=== PATIENT | female | born 1945 | race Caucasian/White ===

== ENCOUNTER 2017-07-10 09:53 | Emergency (ER) | payer MEDICARE, BC ==
[2017-07-10] MEDS ORDERED: Sodium Chloride 0.9% 10 ML Syringe FLUSH PRN (09:56)
--- NOTE | 2017-07-10 10:02 | EDM.PDOC ---
ED HPI GENERAL MEDICAL PROBLEM - General Chief Complaint: Respiratory Problem Stated Complaint: sob Time Seen by Provider: 07/10/17 09:57 Source of Information: Reports: Patient History Limitations: Reports: No Limitations - History of Present Illness INITIAL COMMENTS - FREE TEXT/NARRATIVE: Patient is a 72-year-old who is seen in the ER with chief complaint shortness of breath not feeling well for about a week for the past 2 days has had progressive shortness of breath was brought in by ambulance for evaluation patient was placed on oxygen which did not help and given a respiratory treatment with no help. Onset: Gradual Duration: Day(s):, Getting Worse Location: Reports: Chest Severity: Moderate Improves with: Reports: None Worsens with: Reports: None Context: Reports: Other (Illness) Associated Symptoms: Reports: Shortness of Breath, Weakness - Related Data Allergies Allergy/AdvReac Type Severity Reaction Status Date / Time bacitracin Allergy Other Verified 07/10/17 10:23 Penicillins Allergy Other Verified 07/10/17 10:23 Home Meds: Home Meds Albuterol [Ventolin HFA] 2 puff INH QID PRN 07/10/17 [History] Albuterol/Ipratropium [DuoNeb 3.0-0.5 MG/3 ML] 3 ml NEB Q6HRRT 30 Days #120 neb 07/10/17 [Rx] Aspirin 81 mg PO DAILY 07/10/17 [History] Hydrochlorothiazide [Hydrochlorothiazide] 25 mg PO DAILY 07/10/17 [History] Levofloxacin [Levaquin] 500 mg PO Q24H #10 tablet 07/10/17 [Rx] Magnesium 200 mg PO DAILY 07/10/17 [History] Oxybutynin [Oxybutynin ER] 10 mg PO DAILY 07/10/17 [History] Pantoprazole [ProTONIX] 40 mg PO QPM 07/10/17 [History] Potassium Chloride 20 meq PO DAILY 07/10/17 [History] atorvaSTATin [Lipitor] 40 mg PO BEDTIME 07/10/17 [History] predniSONE 20 mg PO BID 10 Days #20 tablet 07/10/17 [Rx] ED ROS GENERAL - Review of Systems Review Of Systems: See Below Constitutional: Reports: Weakness, Other (Shortness of breath) HEENT: Reports: No Symptoms Respiratory: Reports: Shortness of Breath Cardiovascular: Reports: No Symptoms Endocrine: Reports: No Symptoms GI/Abdominal: Reports: No Symptoms : Reports: No Symptoms Musculoskeletal: Reports: Arm Pain (Right arm pain when she drives) Skin: Reports: No Symptoms Neurological: Reports: No Symptoms Psychiatric: Reports: No Symptoms Hematologic/Lymphatic: Reports: No Symptoms ED EXAM, GENERAL - Physical Exam Exam: See Below General Appearance: Alert, WD/WN, Mild Distress Ears: Normal External Exam, Normal Canal, Hearing Grossly Normal, Normal TMs Ear Exam: Bilateral Ear: Auricle Normal, Canal Normal, TM normal Nose: Normal Inspection, Normal Mucosa, No Blood Throat/Mouth: Normal Inspection, Normal Lips, Normal Teeth, Normal Gums, Normal Oropharynx, Normal Voice, No Airway Compromise Head: Atraumatic, Normocephalic Neck: Normal Inspection, Supple, Non-Tender, Full Range of Motion Respiratory/Chest: Lungs Clear, Decreased Breath Sounds, Prolonged Expiration Cardiovascular: Normal Peripheral Pulses, Regular Rate, Rhythm, No Edema, No Gallop, No JVD, No Murmur, No Rub GI/Abdominal: Normal Bowel Sounds, Soft, Non-Tender, No Organomegaly, No Distention, No Abnormal Bruit, No Mass (Female) Exam: Deferred Rectal (Female) Exam: Deferred Back Exam: Normal Inspection, Decreased Range of Motion Extremities: Normal Inspection, Normal Range of Motion, Non-Tender, Normal Capillary Refill, No Pedal Edema Neurological: Alert, Oriented, CN II-XII Intact, Normal Cognition, Normal Gait, Normal Reflexes, No Motor/Sensory Deficits Psychiatric: Normal Affect, Normal Mood Skin Exam: Warm, Dry, Intact, Normal Color, No Rash Course - Vital Signs Last Recorded V/S: Last Vital Signs Temp 97.8 F 07/10/17 11:15 Pulse 96 07/10/17 11:48 Resp 16 07/10/17 11:48 BP 140/53 L 07/10/17 11:48 Pulse Ox 98 07/10/17 11:48 - Orders/Labs/Meds Labs: Laboratory Tests 07/10/17 07/10/17 07/10/17 Range/Units 09:57 10:15 10:15 WBC 7.0 (4.0-10.2) K/uL RBC 4.26 (3.77-5.09) M/uL Hgb 13.0 (11.7-15.5) g/dL Hct 39.5 (34.0-46.0) % MCV 92.7 (84.0-98.0) fL MCH 30.5 (28.2-33.3) pg MCHC 32.9 (31.7-36.0) g/dL RDW 13.7 (11.2-14.1) % Plt Count 258 (150-350) K/uL Neut % (Auto) 71.2 (45.0-80.0) % Lymph % (Auto) 21.6 (10.0-50.0) % [place] % (Auto) 6.2 (2.0-14.0) % Eos % (Auto) 0.7 (0.0-5.0) % Baso % (Auto) 0.3 (0.0-2.0) % Neut # (Auto) 4.95 (1.40-7.00) K/uL Lymph # (Auto) 1.50 (0.50-3.50) K/uL [place] # (Auto) 0.43 (0.00-1.00) K/uL Eos # (Auto) 0.05 (0.00-0.50) K/uL Baso # (Auto) 0.02 (0.00-0.20) K/uL D-Dimer, Quantitative (0-400) ng/mL Sodium 144 (136-145) mmol/L Potassium 2.5 L* (3.5-5.1) mmol/L Chloride 102 (98-107) mmol/L Carbon Dioxide 31.1 (21.0-32.0) mmol/L BUN 10 (7-18) mg/dL Creatinine 0.78 (0.51-1.17) mg/dL Est Cr Clr Drug Dosing 50.05 mL/min Estimated GFR (MDRD) > 60 mL/min Glucose 152 H (74-106) mg/dL Hemoglobin A1c 6.0 H (4.3-5.7) % Calcium 10.7 H (8.5-10.1) mg/dL 07/10/17 Range/Units 10:15 WBC (4.0-10.2) K/uL RBC (3.77-5.09) M/uL Hgb (11.7-15.5) g/dL Hct (34.0-46.0) % MCV (84.0-98.0) fL MCH (28.2-33.3) pg MCHC (31.7-36.0) g/dL RDW (11.2-14.1) % Plt Count (150-350) K/uL Neut % (Auto) (45.0-80.0) % Lymph % (Auto) (10.0-50.0) % [place] % (Auto) (2.0-14.0) % Eos % (Auto) (0.0-5.0) % Baso % (Auto) (0.0-2.0) % Neut # (Auto) (1.40-7.00) K/uL Lymph # (Auto) (0.50-3.50) K/uL [place] # (Auto) (0.00-1.00) K/uL Eos # (Auto) (0.00-0.50) K/uL Baso # (Auto) (0.00-0.20) K/uL D-Dimer, Quantitative 126 (0-400) ng/mL Sodium (136-145) mmol/L Potassium (3.5-5.1) mmol/L Chloride (98-107) mmol/L Carbon Dioxide (21.0-32.0) mmol/L BUN (7-18) mg/dL Creatinine (0.51-1.17) mg/dL Est Cr Clr Drug Dosing mL/min Estimated GFR (MDRD) mL/min Glucose (74-106) mg/dL Hemoglobin A1c (4.3-5.7) % Calcium (8.5-10.1) mg/dL Meds: Medications Discontinued Medications Generic Name Dose Route Start Last Admin Trade Name Freq PRN Reason Stop Dose Admin Albuterol/Ipratropium 3 ml 07/10/17 11:20 07/10/17 11:24 Duoneb 3.0-0.5 Mg/3 Ml NEB 07/10/17 11:21 3 ml ONETIME ONE Administration Budesonide 0.5 mg 07/10/17 11:21 07/10/17 11:35 Pulmicort NEB 07/10/17 11:22 0.5 mg ONETIME ONE Administration Iopamidol 100 ml 07/10/17 10:24 Isovue-370 (76%) IVPUSH 07/10/17 10:25 ONETIME ONE Methylprednisolone Sodium Succinate 125 mg 07/10/17 11:22 07/10/17 11:35 Solu-Medrol IVPUSH 07/10/17 11:23 125 mg ONETIME ONE Administration Potassium Chloride 40 meq 07/10/17 10:43 07/10/17 11:15 Klor-Con M20 PO 07/10/17 10:44 40 meq ONETIME ONE Administration Sodium Chloride 10 ml 07/10/17 09:56 Saline Flush FLUSH ASDIRECTED PRN Keep Vein Open Departure - Departure Time of Disposition: 12:20 Disposition: Home, Self-Care 01 Condition: Fair Clinical Impression: Acute bronchiolitis Qualifiers: Bronchiolitis organism: unspecified organism Qualified Code(s): J21.9 - Acute bronchiolitis, unspecified - Discharge Information Prescriptions: Albuterol/Ipratropium [DuoNeb 3.0-0.5 MG/3 ML] 3 ml NEB Q6HRRT 30 Days #120 neb Levofloxacin [Levaquin] 500 mg PO Q24H #10 tablet predniSONE 20 mg PO BID 10 Days #20 tablet Referrals: Roseann Shaver, DIE ASSEMBLER [Primary Care Provider] - Forms: ED Department Discharge
[2017-07-10] MEDS ORDERED: Iopamidol 755 Mg/ML 100 ML Bottle IVPUSH ONE (10:24)
[2017-07-10 10:33] LABS: CHLORIDE,CL 102 mmol/L (98-107); SODIUM,NA 144 mmol/L (136-145)
[2017-07-10] MEDS ORDERED: Potassium Chloride 20 MEQ Tab.ER PO ONE (10:43)
[2017-07-10] MEDS ORDERED: Albuterol/Ipratropium 3.0-0.5 MG/3 ML Neb Soln NEB ONE (11:20)
[2017-07-10] MEDS ORDERED: Budesonide 0.5 MG/2 ML Neb Susp NEB ONE (11:21)
[2017-07-10] MEDS ORDERED: methylPREDNISolone Sodium Succinate 125 MG/2 ML SDV IVPUSH ONE (11:22)
== END 2017-07-10 12:24 | disposition home or self-care (01) ==
LOC: LL.ED 09:53
DX: J21.9 Acute bronchiolitis, unspecified (principal); Z79.82 Long term (current) use of aspirin; Z79.899 Other long term (current) drug therapy; Z88.0 Allergy status to penicillin; Z88.1 Allergy status to other antibiotic agents
CPT/HCPCS: 36415; 71046; 71275; 80048; 83036; 85025; 85379; 87040; 93005; 94640; 96374; 99285; A9270; J2930; 99283; Q9967

== ENCOUNTER 2017-09-11 12:40 | Emergency (ER) | payer MEDICARE, BC ==
--- NOTE | 2017-09-11 13:28 | EDM.PDOC ---
ED HPI GENERAL MEDICAL PROBLEM - General Chief Complaint: Respiratory Problem Stated Complaint: SOB Time Seen by Provider: 09/11/17 13:18 Source of Information: Reports: Patient History Limitations: Reports: No Limitations - History of Present Illness INITIAL COMMENTS - FREE TEXT/NARRATIVE: Patient is a 72-year-old who presents to the ER with progressive coughing for the past 2 days, in the last 24 hours she's noticed increase shortness of breath she states that yesterday things got worse after she fell and sat in the snow for a while. Patient also ran out of her DuTinyCob Onset: Gradual Duration: Day(s): (Past 2 days), Getting Worse Location: Reports: Chest Severity: Moderate Improves with: Reports: Medication Worsens with: Reports: Movement Context: Reports: Other (Activity and exercise) Associated Symptoms: Reports: Cough, Shortness of Breath - Related Data Allergies Allergy/AdvReac Type Severity Reaction Status Date / Time bacitracin Allergy Other Verified 09/11/17 12:52 Penicillins Allergy Other Verified 09/11/17 12:52 Home Meds: Home Meds Albuterol [Ventolin HFA] 2 puff INH QID PRN 07/10/17 [History] Albuterol/Ipratropium [DuoNeb 3.0-0.5 MG/3 ML] 3 ml NEB Q6HRRT 30 Days #120 neb 07/10/17 [Rx] Aspirin 81 mg PO DAILY 07/10/17 [History] Hydrochlorothiazide [Hydrochlorothiazide] 25 mg PO DAILY 07/10/17 [History] Magnesium 200 mg PO DAILY 07/10/17 [History] Oxybutynin [Oxybutynin ER] 10 mg PO DAILY 07/10/17 [History] Pantoprazole [ProTONIX] 40 mg PO QPM 07/10/17 [History] Potassium Chloride 20 meq PO DAILY 07/10/17 [History] atorvaSTATin [Lipitor] 40 mg PO BEDTIME 07/10/17 [History] Albuterol/Ipratropium [DuoNeb 3.0-0.5 MG/3 ML] 3 ml .ROUTE Q4H PRN 30 Days #120 neb 09/11/17 [Rx] Levofloxacin [Levaquin] 500 mg PO DAILY #7 tab 09/11/17 [Rx] Potassium Chloride 20 meq PO BID 30 Days #60 tab.er.prt 09/11/17 [Rx] Past Medical History HEENT History: Reports: Impaired Vision Cardiovascular History: Reports: High Cholesterol, Hypertension, SOB on Exertion Respiratory History: Reports: Bronchitis, Recurrent, COPD, SOB Gastrointestinal History: Reports: GERD 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: Psychiatric History: Reports: None Oncologic (Cancer) History: Reports: Lung, Other (See Below) Other Oncologic History: right lung cancer 2014 treated with radiation and chemo therapy - Past Surgical History HEENT Surgical History: Reports: None Cardiovascular Surgical History: Reports: None Oncologic Surgical History: Reports: None Social & Family History - Tobacco Use Smoking Status *Q: Former Smoker Used Tobacco, but Quit: Yes Month/Year Tobacco Last Used: 2014 Second Hand Smoke Exposure: No - Recreational Drug Use Recreational Drug Use: No ED ROS GENERAL - Review of Systems Review Of Systems: See Below Constitutional: Reports: No Symptoms HEENT: Reports: No Symptoms Respiratory: Reports: Shortness of Breath Cardiovascular: Reports: No Symptoms Endocrine: Reports: No Symptoms GI/Abdominal: Reports: No Symptoms : Reports: Incontinence Skin: Reports: No Symptoms Neurological: Reports: No Symptoms Psychiatric: Reports: No Symptoms Hematologic/Lymphatic: Reports: No Symptoms Immunologic: Reports: No Symptoms ED EXAM, GENERAL - Physical Exam Exam: See Below Exam Limited By: No Limitations General Appearance: Alert, WD/WN, Mild Distress (Shortness of breath) Ears: Normal External Exam, Normal Canal, Hearing Grossly Normal, Normal TMs Ear Exam: Bilateral Ear: Auricle Normal, Canal Normal, TM normal Nose: Normal Inspection, Normal Mucosa, No Blood Head: Atraumatic, Normocephalic Neck: Normal Inspection, Supple, Non-Tender, Full Range of Motion Respiratory/Chest: Respiratory Distress (Mild), Decreased Breath Sounds Cardiovascular: Normal Peripheral Pulses, Regular Rate, Rhythm, No Edema, No Gallop, No JVD, No Murmur, No Rub GI/Abdominal: Normal Bowel Sounds, Soft, Non-Tender, No Organomegaly, No Distention, No Abnormal Bruit, No Mass (Female) Exam: Deferred Rectal (Female) Exam: Deferred Back Exam: Normal Inspection, Full Range of Motion, NT Extremities: Normal Inspection, Normal Range of Motion, Non-Tender, Normal Capillary Refill, No Pedal Edema Neurological: Alert, Oriented, CN II-XII Intact, Normal Cognition, Normal Gait, Normal Reflexes, No Motor/Sensory Deficits Psychiatric: Normal Affect, Normal Mood Skin Exam: Warm, Dry, Intact, Normal Color, No Rash Lymphatic: No Adenopathy Course - Vital Signs Last Recorded V/S: Last Vital Signs Temp 98.3 F 09/11/17 12:45 Pulse 101 H 09/11/17 12:45 Resp 20 09/11/17 12:45 BP 130/61 09/11/17 12:45 Pulse Ox 95 09/11/17 12:45 - Orders/Labs/Meds Orders: Active Orders 24 hr Category Date Time Status Chest 2V [CR] Stat Exams 09/11/17 12:58 Ordered CMP [COMPREHENSIVE METABOLIC PN,CMP] [CHEM] Stat Lab 09/11/17 13:05 Received LACTIC ACID [CHEM] Stat Lab 09/11/17 13:05 Received PRO B-TYPE NATRIUR PEPT,BNPPRO [CHEM] Stat Lab 09/11/17 13:05 Received Labs: Laboratory Tests 09/11/17 Range/Units 13:05 WBC 6.8 (4.0-10.2) K/uL RBC 3.88 (3.77-5.09) M/uL Hgb 11.9 (11.7-15.5) g/dL Hct 36.2 (34.0-46.0) % MCV 93.3 (84.0-98.0) fL MCH 30.7 (28.2-33.3) pg MCHC 32.9 (31.7-36.0) g/dL RDW 13.1 (11.2-14.1) % Plt Count 250 (150-350) K/uL Neut % (Auto) 71.0 (45.0-80.0) % Lymph % (Auto) 22.5 (10.0-50.0) % [place] % (Auto) 5.5 (2.0-14.0) % Eos % (Auto) 0.7 (0.0-5.0) % Baso % (Auto) 0.3 (0.0-2.0) % Neut # (Auto) 4.80 (1.40-7.00) K/uL Lymph # (Auto) 1.52 (0.50-3.50) K/uL [place] # (Auto) 0.37 (0.00-1.00) K/uL Eos # (Auto) 0.05 (0.00-0.50) K/uL Baso # (Auto) 0.02 (0.00-0.20) K/uL Departure - Departure Time of Disposition: 13:58 Disposition: Home, Self-Care 01 Condition: Fair Clinical Impression: COPD (chronic obstructive pulmonary disease) - Discharge Information Instructions: Chronic Obstructive Pulmonary Disease Referrals: Roseann Shaver MILLWRIGHT HELPER [Primary Care Provider] - Care Plan Goals: Plan to send her home on DuoNeb's steroids and antibiotics Patient will be scheduled to see her primary physician for follow-up renal meds and pulmonary workup - My Orders Last 24 Hours: My Active Orders 09/11/17 12:58 Chest 2V [CR] Stat 09/11/17 13:05 CMP [COMPREHENSIVE METABOLIC PN,CMP] [CHEM] Stat LACTIC ACID [CHEM] Stat PRO B-TYPE NATRIUR PEPT,BNPPRO [CHEM] Stat - Assessment/Plan Last 24 Hours: My Active Orders 09/11/17 12:58 Chest 2V [CR] Stat 09/11/17 13:05 CMP [COMPREHENSIVE METABOLIC PN,CMP] [CHEM] Stat LACTIC ACID [CHEM] Stat PRO B-TYPE NATRIUR PEPT,BNPPRO [CHEM] Stat
[2017-09-11 13:36] LABS: CHLORIDE,CL 102 mmol/L (98-107); SODIUM,NA 143 mmol/L (136-145)
[2017-09-11] MEDS ORDERED: Albuterol/Ipratropium 3.0-0.5 MG/3 ML Neb Soln NEB ONE (13:56)
== END 2017-09-11 14:50 | disposition home or self-care (01) ==
LOC: LL.ED 12:40 → SUPCPDRO 12:40 → LL.ED 14:50
DX: J44.9 Chronic obstructive pulmonary disease, unspecified (principal); K21.9 Gastro-esophageal reflux disease without esophagitis; Z88.0 Allergy status to penicillin; Z88.1 Allergy status to other antibiotic agents; Z79.899 Other long term (current) drug therapy; Z87.891 Personal history of nicotine dependence; Z79.82 Long term (current) use of aspirin
CPT/HCPCS: 36415; 71046; 80053; 83605; 83880; 85025; 99285

== ENCOUNTER 2017-09-20 14:59 | Emergency (ER) | payer MEDICARE, BC ==
--- NOTE | 2017-09-20 16:00 | EDM.PDOC ---
ED HPI GENERAL MEDICAL PROBLEM - General Chief Complaint: General Stated Complaint: Headache Time Seen by Provider: 09/20/17 15:15 Source of Information: Reports: Patient History Limitations: Reports: No Limitations - History of Present Illness INITIAL COMMENTS - FREE TEXT/NARRATIVE: Patient is a 72-year-old who was brought in for evaluation by son patient states that for the last couple days she's had migraine she's had headaches today's headache is retroverted ocular pressure over the frontal area patient states that for about 2 weeks she's had worsening of these symptoms prior to this she's never had headache. She now feels that she is unsteady on her feet son also has noticed small changes such as increased headaches changes in balance Duration: Week(s):, Intermittent, Waxing/Waning (Some days better than others) Location: Reports: Head Quality: Reports: Pressure Severity: Moderate Improves with: Reports: None Worsens with: Reports: None Associated Symptoms: Reports: Confusion (Noticed by son), Headaches - Related Data Allergies Allergy/AdvReac Type Severity Reaction Status Date / Time bacitracin Allergy Other Verified 09/20/17 15:00 Penicillins Allergy Other Verified 09/20/17 15:00 Home Meds: Home Meds Aspirin 81 mg PO DAILY 07/10/17 [History] Hydrochlorothiazide [Hydrochlorothiazide] 25 mg PO DAILY 07/10/17 [History] Magnesium 200 mg PO DAILY 07/10/17 [History] Oxybutynin [Oxybutynin ER] 10 mg PO DAILY 07/10/17 [History] Pantoprazole [ProTONIX] 40 mg PO QPM 07/10/17 [History] Potassium Chloride 20 meq PO DAILY 07/10/17 [History] atorvaSTATin [Lipitor] 40 mg PO BEDTIME 07/10/17 [History] Potassium Chloride 20 meq PO BID 30 Days #60 tab.er.prt 09/11/17 [Rx] Albuterol/Ipratropium [DuoNeb 3.0-0.5 MG/3 ML] 3 ml INH BID PRN 09/20/17 [ History] guaiFEN/Phenyleph/Acetaminophn [Tylenol Sinus Severe Caplet] 2 tab PO Q4HR 09/20 [History] Past Medical History HEENT History: Reports: Impaired Vision Cardiovascular History: Reports: High Cholesterol, Hypertension, SOB on Exertion Respiratory History: Reports: Bronchitis, Recurrent, COPD, SOB Gastrointestinal History: Reports: GERD 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: Psychiatric History: Reports: None Oncologic (Cancer) History: Reports: Lung, Other (See Below) Other Oncologic History: right lung cancer 2014 treated with radiation and chemo therapy - Past Surgical History HEENT Surgical History: Reports: None Cardiovascular Surgical History: Reports: None Oncologic Surgical History: Reports: None Social & Family History - Tobacco Use Smoking Status *Q: Former Smoker Used Tobacco, but Quit: Yes Month/Year Tobacco Last Used: 2014 Second Hand Smoke Exposure: No - Recreational Drug Use Recreational Drug Use: No ED ROS GENERAL - Review of Systems Review Of Systems: See Below Constitutional: Reports: Fatigue HEENT: Reports: Other (Pressure in for head retro-ocular discomfort) Respiratory: Reports: No Symptoms Cardiovascular: Reports: No Symptoms Endocrine: Reports: No Symptoms GI/Abdominal: Reports: No Symptoms : Reports: No Symptoms Musculoskeletal: Reports: No Symptoms Skin: Reports: No Symptoms Neurological: Reports: Confusion, Headache, Difficulty Walking Psychiatric: Reports: No Symptoms Hematologic/Lymphatic: Reports: No Symptoms Immunologic: Reports: No Symptoms ED EXAM, GENERAL - Physical Exam Exam: See Below Exam Limited By: No Limitations General Appearance: Alert, WD/WN, Mild Distress Eye Exam: Bilateral Eye: EOMI, PERRL (Pupils 3 mm reactive to light), Vision Changes (No vision change) Ears: Normal External Exam, Normal Canal, Hearing Grossly Normal, Normal TMs Ear Exam: Bilateral Ear: Auricle Normal, Canal Normal, TM normal Nose: Normal Inspection, Normal Mucosa, No Blood Throat/Mouth: Normal Inspection, Normal Lips, Normal Teeth, Normal Gums, Normal Oropharynx, Normal Voice, No Airway Compromise Head: Atraumatic, Normocephalic. No: Sinus Tenderness Neck: Normal Inspection, Supple, Non-Tender, Full Range of Motion Respiratory/Chest: No Respiratory Distress, Lungs Clear, Normal Breath Sounds, No Accessory Muscle Use, Chest Non-Tender Cardiovascular: Normal Peripheral Pulses, Regular Rate, Rhythm, No Edema, No Gallop, No JVD, No Murmur, No Rub GI/Abdominal: Normal Bowel Sounds, Soft, Non-Tender, No Organomegaly, No Distention, No Abnormal Bruit, No Mass (Female) Exam: Deferred Rectal (Female) Exam: Deferred Back Exam: Normal Inspection, Full Range of Motion, NT Extremities: Normal Inspection, Normal Range of Motion, Non-Tender, Normal Capillary Refill, No Pedal Edema Neurological: Alert, Oriented, CN II-XII Intact, Normal Cognition, Normal Gait, Normal Reflexes, No Motor/Sensory Deficits, Slow to Respond, Abnormal Gait ( Fevers left) Psychiatric: Normal Affect, Normal Mood Skin Exam: Warm, Dry, Intact, Normal Color, No Rash Lymphatic: No Adenopathy Course - Vital Signs Last Recorded V/S: Last Vital Signs Temp 97.5 F 09/20/17 15:00 Pulse 77 09/20/17 16:50 Resp 16 09/20/17 16:50 BP 153/67 H 09/20/17 16:50 Pulse Ox 79 L 09/20/17 16:50 - Orders/Labs/Meds Orders: Active Orders 24 hr Category Date Time Status Peripheral IV Care [RC] . DIRECTED Care 09/20/17 16:41 Active Head wo Cont [CT] Stat Exams 09/20/17 15:52 Taken Sodium Chloride 0.9% [Saline Flush] Med 09/20/17 16:41 Active 10 ml FLUSH ASDIRECTED PRN Peripheral IV Insertion Adult [OM.PC] Routine Oth 09/20/17 16:41 Ordered Medication Orders Sodium Chloride (Saline Flush) 10 ml FLUSH ASDIRECTED PRN PRN Reason: Keep Vein Open Last Admin: 09/20/17 16:44 Dose: 10 ml Labs: Laboratory Tests 09/20/17 09/20/17 Range/Units 16:13 16:13 WBC 7.1 (4.0-10.2) K/uL RBC 4.00 (3.77-5.09) M/uL Hgb 12.3 (11.7-15.5) g/dL Hct 37.6 (34.0-46.0) % MCV 94.0 (84.0-98.0) fL MCH 30.8 (28.2-33.3) pg MCHC 32.7 (31.7-36.0) g/dL RDW 13.3 (11.2-14.1) % Plt Count 238 (150-350) K/uL Neut % (Auto) 61.4 (45.0-80.0) % Lymph % (Auto) 29.3 (10.0-50.0) % [place] % (Auto) 7.7 (2.0-14.0) % Eos % (Auto) 1.3 (0.0-5.0) % Baso % (Auto) 0.3 (0.0-2.0) % Neut # (Auto) 4.38 (1.40-7.00) K/uL Lymph # (Auto) 2.09 (0.50-3.50) K/uL [place] # (Auto) 0.55 (0.00-1.00) K/uL Eos # (Auto) 0.09 (0.00-0.50) K/uL Baso # (Auto) 0.02 (0.00-0.20) K/uL Sodium 144 (136-145) mmol/L Potassium 4.3 D (3.5-5.1) mmol/L Chloride 107 (98-107) mmol/L Carbon Dioxide 30.1 (21.0-32.0) mmol/L BUN 11 (7-18) mg/dL Creatinine 0.69 (0.51-1.17) mg/dL Est Cr Clr Drug Dosing 59.17 mL/min Estimated GFR (MDRD) > 60 mL/min Glucose 104 (74-106) mg/dL Calcium 9.0 (8.5-10.1) mg/dL Meds: Medications Generic Name Dose Route Start Last Admin Trade Name Freq PRN Reason Stop Dose Admin Sodium Chloride 10 ml 09/20/17 16:41 09/20/17 16:44 Saline Flush FLUSH 10 ml ASDIRECTED PRN Administration Keep Vein Open Discontinued Medications Generic Name Dose Route Start Last Admin Trade Name Freq PRN Reason Stop Dose Admin Ondansetron HCl 4 mg 09/20/17 16:35 09/20/17 16:40 Zofran IVPUSH 09/20/17 16:36 4 mg ONETIME ONE Administration Departure - Departure Time of Disposition: 17:07 Disposition: Home, Self-Care 01 Condition: Fair Clinical Impression: Brain mass - Discharge Information Referrals: Roseann Shaver GLUTEN SETTLING TENDER [Primary Care Provider] - Forms: ED Department Discharge Care Plan Goals: 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 with Dr. Bryon Lott at this time patient will be scheduled with neurosurgery tomorrow prior to visit an MRI will be done this will be handled by neurosurgery. Patient is to return to the ER if any changes or worsening of symptoms patient will be sent home on Tylenol 502 capsules every 6 hours for headaches and Zofran ADT 4 mg by mouth every 6 hours - My Orders Last 24 Hours: My Active Orders 09/20/17 15:52 Head wo Cont [CT] Stat 09/20/17 16:41 Peripheral IV Care [RC] . DIRECTED Sodium Chloride 0.9% [Saline Flush] 10 ml FLUSH ASDIRECTED PRN Peripheral IV Insertion Adult [OM.PC] Routine - Assessment/Plan Last 24 Hours: My Active Orders 09/20/17 15:52 Head wo Cont [CT] Stat 09/20/17 16:41 Peripheral IV Care [RC] . DIRECTED Sodium Chloride 0.9% [Saline Flush] 10 ml FLUSH ASDIRECTED PRN Peripheral IV Insertion Adult [OM.PC] Routine
[2017-09-20] MEDS ORDERED: Ondansetron 4 MG/2 ML SDV IVPUSH ONE (16:35)
[2017-09-20 16:36] LABS: CHLORIDE,CL 107 mmol/L (98-107); SODIUM,NA 144 mmol/L (136-145)
[2017-09-20] MEDS ORDERED: Sodium Chloride 0.9% 10 ML Syringe FLUSH PRN (16:41)
== END 2017-09-20 17:25 | disposition home or self-care (01) ==
LOC: LL.ED 14:59
DX: G93.89 Other specified disorders of brain (principal); I10 Essential (primary) hypertension; E78.00 Pure hypercholesterolemia, unspecified; J44.9 Chronic obstructive pulmonary disease, unspecified; K21.9 Gastro-esophageal reflux disease without esophagitis; Z79.899 Other long term (current) drug therapy; Z87.891 Personal history of nicotine dependence; Z85.118 Personal history of other malignant neoplasm of bronchus and lung; Z79.82 Long term (current) use of aspirin; Z88.1 Allergy status to other antibiotic agents; Z88.0 Allergy status to penicillin
CPT/HCPCS: 36415; 70450; 80048; 85025; 96374; 99284; J2405; J7050

== ENCOUNTER → 2017-09-22 | Emergency (ER) | payer MEDICARE, BC ==
[2017-09-22 11:23] LABS: CHLORIDE,CL 104 mmol/L (98-107); SODIUM,NA 143 mmol/L (136-145)
--- NOTE | 2017-09-24 12:07 | ER ---
HISTORY OF PRESENT ILLNESS: This patient is a 72-year-old white female, being evaluated for a probable CVA with patient transferred to this facility via ambulance with [facility] transport. No treatment was given en route. Note the patient is a relatively poor historian secondary to her recent progressive confusion as below. Her son, Dick, who is also present in the emergency room, is also an extremely poor historian. The patient apparently was found on the floor by her bed at about 0415 hours this morning by her son. Last known well time/baseline was at 1800 hours yesterday evening. Note that the patient did exhibit some left-sided hemiparesis at the scene. The patient was alert and denies any history of head injury, headaches, visual changes, current nausea, etc. She also denies any chest pain, heart flutter, diaphoresis, paresthesias, or other anginal-type symptoms. Despite evidence of some emesis at the scene, the patient denies any abdominal pain, nausea or known emesis. She complains of mid lower back pain, however, is unable to rate her pain. No apparent recent history of fever, cough, wheezing, or other known recent infections, etc. The patient was evaluated in this emergency room by another physician on 09/20/2016 with newly-diagnosed right-sided brain tumor with the patient yet to obtain previously recommended MRI of the brain. There was apparently no evidence of stroke-type symptoms at the time of emergency room evaluation on 09/20. NOTE THAT OUR COMPUTER SYSTEM/[facility] [employer] IS DOWN WITH PAPER HOSPITAL RECORD NOT ABLE TO BE OBTAINED AT THIS TIME. Per history from the patient's son, the patient has been experiencing some increasing mild dystaxia and confusion during the last 1 to 1-1/2 weeks, which did result in emergency room evaluation 2 days ago as above. Note previous history of lung cancer as below with no known metastases at that time. PREVIOUS MEDICAL HISTORY: 1. Chronic illnesses, incomplete history secondary to absence of medical records and patient and son being poor historians as above. 2. Known history of osteoarthritis. 3. Known additional history of right-sided lung cancer in about 2014, with subsequent radiation and chemotherapy, but no apparent surgery. PAST SURGICAL HISTORY: Unknown. CURRENT MEDICATIONS: Unknown. ALLERGIES: Penicillin and bacitracin, both reactions unknown. SOCIAL HISTORY: HABITS: Previous history of tobacco use. Number of years and amount unknown with patient stopping smoking in 2015 after diagnosis of lung cancer as above. OBJECTIVE: VITAL SIGNS: At the time of arrival to our facility blood pressure of 133/73, pulse 95, respiratory rate 13, temperature 97.9 degrees, O2 sat 95% on room air at arrival. Stable O2 saturation of 94% on room air at the time of discharge with vital signs at the time of transfer showing a blood pressure of 136/67, pulse 91, and respiratory rate of 15. HEENT: Normal with the exception of complete dentures uppers and lowers. Eyes, PERRLA, EOMI. No injection, drainage or nystagmus. The TMs did show some moderate cerumen bilaterally with no evidence of acute infection. Fundi normal. NECK: Mild bilateral carotid bruits versus borderline transmitted heart sounds. No jugular vein distention, hepatojugular reflux, lymphadenopathy, or thyromegaly. LUNGS: Mild bilateral basilar rales with no dyspnea or intercostal retractions. HEART: Regular rate and rhythm with borderline mild 1/6 LOIS of the aortic valve. No S3, S4, rubs, or clicks. ABDOMEN: Soft. Normal bowel sounds. No palpation pain, rebound, distention, or HSM. Pelvis is stable. EXTREMITIES: Shows moderate osteoarthritic changes with no pedal edema. Negative Homans sign. 2/4 peripheral pulses. NEUROLOGIC: The patient does show some moderate left facial hemiparesis with additional mild left hemiparesis particularly decreased left-sided handgrip strength. Negative Babinski's. [id number] confusion, somewhat increased from yesterday by the son's history. BREASTS: Exam not conducted. RECTAL: Exam not conducted. GENITOURINARY: Exam not conducted. DIAGNOSTIC FINDINGS: Telemetry shows normal sinus rhythm, averaging in the 80s to 90s with only 1 PVC noted. No other significant arrhythmia, tachycardia, etc. EKG showed a normal sinus rhythm, with a heart rate of 91, WA interval of 0.15 seconds with poor R-wave progression in the anterior leads. QRS interval of 0.08 seconds with T-wave inversion in leads V1 and V2. A left cardiac axis was present. Note evidence of probable mild anterior wall cardiac ischemia with no EKG available for comparison. In addition, note mild diffuse biphasic P-waves. X-rays: Acute abdominal x-ray shows evidence of probable moderate COPD by chest x-ray with mild cardiomegaly and [id number] aortic valve calcification with no evidence of significant CHF and probable pulmonary hypertension. No pneumothorax or significant pulmonary infiltrates noted with evidence of probable scarring over the inferolateral aspect of the right upper lobe, likely secondary to previous lung cancer and radiation therapy. Moderate amounts of diffuse stool present with nonspecific bowel gaseous pattern and no evidence of ileus, obstruction, fluid levels, free air etc. X-ray's of the lumbar sacral spine, three-views, shows evidence of severe osteoporosis with moderate osteoarthritic changes. Probable mild L5 vertebral body compression fracture posteriorly with acute versus chronic pattern present. In addition, moderate calcifications noted in the vasculature in these x-rays. LABORATORY DATA: CBC was normal including WBC's of 7.85, hemoglobin 12.5, MCV 92.7, and platelets of 230. Comprehensive metabolic panel was normal with exception of elevated random non-fasting glucose of 128, and mildly decreased potassium of 3.3. Otherwise, BUN 12, creatinine 0.73, sodium 143, and carbonate of 30.6. CK normal at 96, CK-MB 1.3, with a normal cardiac index of 1.4. BNP is mildly elevated at 248. Troponin I was normal at 0.000. Lactic acid normal at 0.8. ASSESSMENT: 1. 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 2. Recently-diagnosed right-sided cerebral mass likely secondary to cancer versus metastases with recent progressive dystaxia and confusion. 3. Chronic obstructive pulmonary disease by chest x-ray. 4. Borderline congestive heart failure. 5. Probable coronary artery disease and peripheral vascular disease with anterior wall cardiac ischemia. 6. Newly-diagnosed premature ventricular contractions. 7. Hypokalemia. 8. Osteoarthritis and osteoporosis with probable L5 vertebral body compression fracture. 9. Status post chemotherapy and radiation therapy for right-sided lung cancer. PLAN: Note that a stroke code was considered upon patient's arrival to the emergency room. Stroke code was not called secondary to last well-known time of 1800 hours yesterday afternoon as above. Also, note, per the patient's son, she is currently a no code with no intubation, CPR, cardioversion, etc. The patient and family are still undecided whether they wish to undergo further treatment for newly-diagnosed probable brain cancer. CT scan of the head was not repeated secondary to recent evaluation in our facility on 09/20/2016, with report reviewed by me shortly after patient's arrival to this facility. Note, today's x-rays and CT scan films will be sent via PACS to accepting facility as below. The patient's care was not compromised by not calling stroke code with patient's vital signs and neurological condition stable throughout emergency room care. Initial telephone consultation at [address] Mcdonald, neurologist at [facility] in [place], who does accept the patient transfer, however, is requesting that the patient initially be evaluated in the emergency room, so that MRI, etc., can be conducted in the in an expeditious manner in that facility. No further treatment recommendations given. The patient was sleeping with no discomfort with no pain medications or other medications required prior to transfer. Dr. Mcdonald does agree to contact his emergency room physicians, concerning patient's transfer. Note, no chest pain or anginal type symptoms with normal cardiac enzymes as above despite the mild anterior wall ischemia by EKG. Emotional support provided to the patient and her son. The patient's son does agree to bring her current medications with him to the hospital in [place]. Ambulance transfer via fusion operator accompaniment. Extensive precautions were given to the patient and her son, who are in agreement with the treatment plan. Note current medical therapy is unknown. SARAH Barr MD /[id number] MTDD
== END ==
LOC: LL.ED 06:00
DX: I49.3 Ventricular premature depolarization (principal); E87.6 Hypokalemia; M15.9 Polyosteoarthritis, unspecified; M81.0 Age-related osteoporosis without current pathological fracture; C34.91 Malignant neoplasm of unspecified part of right bronchus or lung; Z88.0 Allergy status to penicillin; Z88.1 Allergy status to other antibiotic agents; Z87.891 Personal history of nicotine dependence
CPT/HCPCS: 36000; 36415; 72100; 74019; 80053; 82550; 82553; 83605; 83880; 84443; 84484; 85025; 99285